=== PATIENT | female | born 1990 | race Caucasian/White ===

== ENCOUNTER → 2018-06-11 11:29 | Outpatient (CLI) | payer OTHER, MEDICAID ==
[2018-06-11 13:31] LABS: BASOPHILS 0.2 % (0-2); EOSINOPHILS 2.1 % (0-7); HEMATOCRIT 37.3 % (36.0-48.0); IMMATURE GRANULOCYTES 0.6 % (0-5); LYMPHOCYTES 20.7 % (15-50); MCH 30.3 pg (26.0-34.0); MCHC 34.9 g/dL (31.0-37.0); MCV 86.9 fL (80.0-100.0); MEAN PLATELET VOLUME 9.8 fL (7.4-10.4); MONOCYTES 6.5 % (2-11); NEUTROPHILS 69.9 % (40-80); PLATELET COUNT 198 10x3/uL (130-400); RBC 4.29 10x6/uL (4.00-5.40); RDW 12.9 % (11.5-14.5); WBC 4.7 10x3/uL (4.8-10.8)
[2018-06-11 13:46] LABS: ALBUMIN 2.6 g/dL (3.4-5.0); ALKALINE PHOSPHATASE 84 U/L (46-116); ALT (SGPT) 37 U/L (10-68); BILIRUBIN - TOTAL 0.25 mg/dL (0.2-1.3); CALC OSMOLALITY 275 mosm/kg (275-300); CARBON DIOXIDE 23.3 mmol/L (21.0-32.0); CHLORIDE - SERUM 107 mmol/L (98-107); CREATININE - SERUM 0.5 mg/dL (0.6-1.3); GLUCOSE 84 mg/dL (74-106); POTASSIUM - SERUM 3.9 mmol/L (3.5-5.1); PROTEIN - SERUM 6.5 g/dL (6.4-8.2); SODIUM 140 mmol/L (136-145); UREA NITROGEN 8 mg/dL (7-18); eGFR NON AFRICAN AMERICAN > 90 mL/min (90-120)
[2018-06-11 14:38] LABS: APPEARANCE HAZY (CLEAR); BILIRUBIN NEGATIVE (NEGATIVE); COLOR YELLOW (YELLOW); GLUCOSE NEGATIVE (NEGATIVE); KETONE NEGATIVE (NEGATIVE); NITRITE NEGATIVE (NEGATIVE); PROTEIN NEGATIVE (NEGATIVE)
== END | disposition home or self-care (01) ==
LOC: D.LDO 11:29 → EDBD 11:29
PROVIDERS: ATTEND Obstetrics & Gynecology
DX: O26.892 Other specified pregnancy related conditions, second trimester (principal); Z3A.18 18 weeks gestation of pregnancy; J11.1 Influenza due to unidentified influenza virus with other respiratory manifestations

== ENCOUNTER 2018-07-22 18:34 | Outpatient (CLI) | payer OTHER, MEDICAID ==
[2018-07-22 19:44] LABS: APPEARANCE CLEAR (CLEAR); BILIRUBIN NEGATIVE (NEGATIVE); COLOR STRAW (YELLOW); GLUCOSE NEGATIVE (NEGATIVE); KETONE NEGATIVE (NEGATIVE); NITRITE NEGATIVE (NEGATIVE); PROTEIN NEGATIVE (NEGATIVE); UROBILINOGEN NORMAL (NORMAL)
== END 2018-07-22 19:50 | disposition home or self-care (01) ==
LOC: D.LDO 18:34 → D.LABREF 18:34 → D.LDO 19:50
PROVIDERS: ATTEND Obstetrics & Gynecology
DX: O36.8130 Decreased fetal movements, third trimester, not applicable or unspecified (principal)

== ENCOUNTER → 2018-09-06 12:39 | Outpatient (CLI) | payer MEDICAID ==
[2018-09-06 13:12] LABS: APPEARANCE CLOUDY (CLEAR); COLOR YELLOW (YELLOW); SPECIFIC GRAVITY 1.005 (1.005-1.020)
[2018-09-06 13:13] LABS: BILIRUBIN NEGATIVE (NEGATIVE); GLUCOSE NEGATIVE (NEGATIVE); KETONE NEGATIVE (NEGATIVE); NITRITE NEGATIVE (NEGATIVE); PROTEIN NEGATIVE (NEGATIVE); UROBILINOGEN NORMAL (NORMAL)
[2018-11-07 19:29] VITALS: BMI 32.0
== END | disposition home or self-care (01) ==
LOC: D.LDO 12:39
PROVIDERS: ATTEND Obstetrics & Gynecology
DX: O26.893 Other specified pregnancy related conditions, third trimester (principal); Z3A.30 30 weeks gestation of pregnancy; M54.5 Low back pain

== ENCOUNTER → 2018-10-20 13:05 | Outpatient (CLI) | payer MEDICAID ==
[2018-11-07 19:29] VITALS: BMI 32.0
== END | disposition home or self-care (01) ==
LOC: D.LDO 13:05
PROVIDERS: ATTEND Obstetrics & Gynecology
DX: O47.9 False labor, unspecified (principal)

== ENCOUNTER 2018-11-07 19:03 | Inpatient (IN) | payer MEDICAID ==
[~2018-11-07] VITALS: Ht 167.6 cm; Wt 89.8 kg
[2018-11-07 19:29] VITALS: BP 122/65; Ht 167.6 cm; Wt 89.8 kg
[2018-11-07 21:06] LABS: HEMATOCRIT 30.3 % (36.0-48.0); HEMOGLOBIN 10.6 g/dL (12-16); MCH 30.7 pg (26.0-34.0); MCV 87.8 fL (80.0-100.0); MEAN PLATELET VOLUME 9.4 fL (7.4-10.4); RBC 3.45 10x6/uL (4.00-5.40); RDW 13.9 % (11.5-14.5); WBC 8.1 10x3/uL (4.8-10.8)
[2018-11-07 23:46] LABS: COLOR YELLOW (YELLOW)
[2018-11-07 23:47] LABS: APPEARANCE CLEAR (CLEAR); BILIRUBIN NEGATIVE (NEGATIVE); GLUCOSE NEGATIVE (NEGATIVE); KETONE NEGATIVE (NEGATIVE); NITRITE NEGATIVE (NEGATIVE); PROTEIN NEGATIVE (NEGATIVE); UROBILINOGEN NORMAL (NORMAL)
[2018-11-07 23:55] LABS: UDS - AMPHET NEGATIVE QUAL (NEGATIVE); UDS - BARB NEGATIVE QUAL (NEGATIVE); UDS - BENZO NEGATIVE QUAL (NEGATIVE); UDS - COCAINE NEGATIVE QUAL (NEGATIVE); UDS - OPIATE NEGATIVE QUAL (NEGATIVE); UDS - PCP NEGATIVE QUAL (NEGATIVE); UDS - THC NEGATIVE QUAL (NEGATIVE)
[2018-11-08 19:01] VITALS: BP 114/55
--- NOTE | 2018-11-08 22:30 | NUR ---
REPORT RECEIVED FROM ARCENIO.
--- NOTE | 2018-11-08 22:36 | NUR ---
PATIENT REPORT TO ROQUE BUENO TO ASSUME PATIENT CARE AT THIS TIME
--- NOTE | 2018-11-08 23:00 | NUR ---
PT IN BED, RESTING WITH EYES CLOSED. AWAKENS EASILY. NO DISTRESS NOTED. VSS. DENIES ANY NEEDS
[2018-11-09 00:01] VITALS: BP 97/60
--- NOTE | 2018-11-09 00:39 | NUR ---
PT C/O PAIN 5/10 TORADOL 10MG GIVEN PER ORDER. DENIES ANY OTHER NNEDS
--- NOTE | 2018-11-09 02:16 | NUR ---
PT UP IN ROOM TO BATHROOM. SCHEDULED TYLENOL 1000MG GIVE PER ORDER, SEE EMAR. STATED PAIN 08/06. DENIES ANY OTHER NEEDS AT THIS TIME
--- NOTE | 2018-11-09 03:15 | NUR ---
LAYING IN BED RESTING WITH EYES CLOSED. RESP WNL. CL IN REACH. SR UP X 2
[2018-11-09 04:34] VITALS: BP 110/62
--- NOTE | 2018-11-09 04:36 | NUR ---
PT AWAKE AND ALERT. BR INFANT, REQUESTS WATER. DENIES ANY OTHER NEEDS
--- NOTE | 2018-11-09 05:21 | NUR ---
AWAKE AND ALERT IN BED, DENIES ANY NEEDS
--- NOTE | 2018-11-09 07:40 | NUR ---
PT AT THIS TIME, INFORMED PT THAT I WILL BE BACK SHORTLY TO DO ASSESSMENT, PT VERBALIZES UNDERSTANDING, DENIES NEEDS AT THIS TIME
[2018-11-09 08:01] LABS: BASOPHILS 0.2 % (0-2); EOSINOPHILS 1.2 % (0-7); HEMATOCRIT 29.6 % (36.0-48.0); HEMOGLOBIN 10.3 g/dL (12-16); IMMATURE GRANULOCYTES 0.4 % (0-5); LYMPHOCYTES 14.7 % (15-50); MCH 30.2 pg (26.0-34.0); MCHC 34.8 g/dL (31.0-37.0); MCV 86.8 fL (80.0-100.0); MEAN PLATELET VOLUME 9.4 fL (7.4-10.4); MONOCYTES 8.2 % (2-11); NEUTROPHILS 75.3 % (40-80); PLATELET COUNT 225 10x3/uL (130-400); RBC 3.41 10x6/uL (4.00-5.40)
[2018-11-09 08:11] LABS: RAPID PLASMA REAGIN Non Reactive (Non Reactive)
[2018-11-09 08:19] VITALS: BP 115/60
--- NOTE | 2018-11-09 08:19 | NUR ---
ASSESSMENT PER FLOW SHEET, VS OBTAINED, SALINE LOCK IN LEFT WRIST INTACT WITH NO REDNESS OR EDEMA, FF, ML, U/2, PT REPORTS FLATUS, NO BM AND VOIDING WITH NO DIFFICULTY, PT REPORTS LITE BLEEDING WITH NO CLOTS, ADM TORADOL PER MD ORDERS FOR CRAMPING, PT DENIES FURTHER NEEDS AT THIS TIME
--- NOTE | 2018-11-09 08:24 | NUR ---
April Meza 11/09/18 Patient not available to speak with CLC regarding at this time. Patient in bathroom. Valentina Gunn, EDVIN
--- NOTE | 2018-11-09 09:15 | NUR ---
PT AT THIS TIME, REQUESTS TO TAKE A SHOWER WHEN FINISHED, INST PT TO USE CALL LIGHT WHEN READY
--- NOTE | 2018-11-09 09:50 | NUR ---
PT AMB IN BRAR WITH IN OPEN CRIB CART TAKING TO NSY, FAMILY AT SIDE, PT REPORTS SHE IS GOING TO WALK TO THE [employer] WITH FAMILY
--- NOTE | 2018-11-09 10:13 | NUR ---
PT BACK IN ROOM, PT C/O SALINE LOCK, SALINE LOCK REMOVED, TIP INTACT, PRESSURE HELD, BANDAID APPLIED, PT READY FOR SHOWER, TOWELS PROVIDED, PT TO SHOWER, BEDDING CHANGED, PT INST TO USE CALL LIGHT FOR ANY ASSISTANCE
--- NOTE | 2018-11-09 10:46 | NUR ---
PT CHICKEN VACCINATOR LIGHT, BANDAID OFF, NEW BANDAID PLACED OVER IV SITE, PT DENIES FURTHER NEEDS
--- NOTE | 2018-11-09 11:33 | NUR ---
PT , PT DENIES NEEDS OR PAIN AT THIS TIME, PT'S OTHER CHILD IN ROOM
--- NOTE | 2018-11-09 13:34 | NUR ---
PT HOLDING INFANT, DENIES NEEDS OR PAIN AT THIS TIME, PT'S OTHER CHILDREN IN ROOM
--- NOTE | 2018-11-09 14:37 | NUR ---
PT LAYING IN BED HOLDING , REQUESTED AND SERVED FRESH H20, DENIES FURTHER NEEDS OR PAIN AT THIS TIME, FAMILY AT BEDSIDE
--- NOTE | 2018-11-09 15:38 | NUR ---
PT AWAKE, HOLDING INFANT, DENIES NEEDS OR PAIN AT THIS TIME, FAMILY AT BEDSIDE
--- NOTE | 2018-11-09 16:08 | NUR ---
PT AWAKE, INFANT LAYING BESIDE PT IN BED, OTHER CHILDREN IN ROOM, ADM TYLENOL PER MD ORDERS, SEE EMAR, PT DENIES NEEDS
--- NOTE | 2018-11-09 16:45 | NUR ---
PT EATING DINNER, FOB HOLDING INFANT, OTHER CHILDREN IN ROOM, PT DENIES NEEDS OR PAIN AT THIS TIME
[2018-11-09 17:16] VITALS: BP 110/51
--- NOTE | 2018-11-09 17:16 | NUR ---
PT LAYING IN BED, INFANT BESIDE HER, PT TAKING PHOTOS, VS OBTAINED, DENIES NEEDS OR PAIN, FOB AND CHILDREN IN ROOM
--- NOTE | 2018-11-09 18:15 | NUR ---
PT HOLDING INFANT, DENIES NEEDS OR PAIN AT THIS TIME, FAMILY IN ROOM
[2018-11-09 19:24] VITALS: BP 113/67
--- NOTE | 2018-11-09 22:54 | NUR ---
PT LYING IN BED HOLDING INFANT, DENIES NEEDS AT THIS TIME. SCHEDULED TYLENOL ADMINISTERED PER MD ORDERS. NO FURTHER NEEDS IDENTIFIED. WILL CONTINUE TO MONITOR.
--- NOTE | 2018-11-09 23:42 | NUR ---
PT , ATILIO CRACKERS AND PEANUT BUTTER PROVIDED PER REQUEST. DENIES PAIN OR OTHER NEEDS. WILL CONTINUE TO MONITOR
--- NOTE | 2018-11-10 02:45 | NUR ---
PT SLEEPING WITH EASY RESPIRATIONS. NO DISTRESS NOTED. AT BEDSIDE IN OPEN CRIB. WILL CONTINUE TO MONITOR
--- NOTE | 2018-11-10 04:59 | NUR ---
PT RESTING QUIETLY WITH EYES CLOSED, NO DISTRESS NOTED. EASILY AROUSED TO VERBAL STIMULI. TYLENOL 1000MG PO ADMINISTERED PER MD ORDERS. SEE EMAR
--- NOTE | 2018-11-10 07:30 | NUR ---
PT SITTING UP IN BED. CARING FOR INFANT. DENIES C/O OR NEEDS.
--- NOTE | 2018-11-10 08:37 | NUR ---
April Meza 11/10/18 LE@ 8:00 S: Client states her nipples are sore when she latches infant. She was given a nipple shield to use last night but they still hurt. States she has been feeding every 2 hours. Last night infant nursed 30 minutes on one side. States she thinks it's infant latch because she hasn't been opening her mouth wide to nurse. Patient observes feeding cues also and agrees to get help with latch. States she still feels some pain with infant latch but it feels better. Verbalized she understands what a correctly latch looks like and is aware to make sure mouth is open wider when latching. Patient states she is tired and will try and get some rest. Denies any other questions or concerns. Patient states she does get WIC. O: Patient standing up in room infant in nursery. Informed patient takes time, practice, and patience in the beginning. Explained normal feeding patterns for a breastfed , benefits of skin to skin, infant feeding cues, positions, how to verify is latched correctly, and encouraged to practice responsive feeding. It is normal for to want to nurse often and how long infant remains latch to vary per feeding. Infant was brought back to room by nursery staff. Observed infant feeding cues and offered to help latch infant in laid back position. Both of patients breast are red, no scabbing or bleeding. My observations from how patient nipples look, infant is being held in cradle position and is only sucking on the tip of patients nipples. If infant is being latched on the left breast, is sucking at an angle only on the tip of the nipple. This can make patient nipple look flat on the tip of one side. Vice Versa on the other breast. Patient applied nipple shield but the shield is to small for her nipples. This can cause more pain due to incorrect size. Discourage use of nipple shield. Lets focus on fixing infant latch. It will take some time for your nipples to heal completely and you not to feel pain. Since they are sore now, even when latches, that feeling can remain but will get better with being latched correctly. The roa to fixing sore nipples is fixing infant latch. Patient has lanolin cream on stand next to bed, explained how to use and benefits. Explained how to care for nipples when taking shower. Patient position in laid back position to nurse. latched on the right breast at 8:15. Infant had round cheeks, mouth 140 degrees, sucking in a rocking motion, and appears content with feeding. Infant sucked for 10 minutes, came off the breast, and is sleeping. Patient nipples look round, not flat. was removed from the breast, burped, swaddled, and placed in crib at beside. Patient verbally agrees to verify infant latch for every feeding and to ask for help as needed with . [facility] appointment made for client when in her room. A: Patient in need of help with latching due to sore nipples. P: Patient will ask for help as needed from nursery staff with help with , latching . Valentina Gunn, CLC
[2018-11-10 08:41] VITALS: BP 108/58
--- NOTE | 2018-11-10 08:41 | NUR ---
ASSESSMENT COMPLETED. VSS. HRRR WITHOUT AUDIBLE MURMUR. BBS CLEAR. BS X 4. ABDOMEN SOFT/NON-DISTENDED. FUNDUS FIRM AT U/2. RUBRA LOCHIA SMALL AMT. PT DENIES HEAVY BLEEDING OR PASSING CLOTS. PERINEUM WITHOUT EDEMA. NEG HOMANS' SIGN. PPP. NO EDEMA NOTED TO BLE. PT DENIES PAIN. REQUESTS AND RECEIVES COFFEE.
--- NOTE | 2018-11-10 09:45 | NUR ---
DISCHARGE INSTRUCTIONS GIVEN TO PT. PT VERBALIZES UNDERSTANDING OF ALL INSTRUCTIONS. COPIES GIVEN TO PT. PT AWAITS 'S DISCHARGE.
--- NOTE | 2018-11-10 11:00 | NUR ---
PT SITTING UP IN BED. VISITS WITH FAMILY. DENIES NEEDS OR C/O.
--- NOTE | 2018-11-10 12:45 | NUR ---
PT SITTING UP IN BED. CARING FOR INFANT. DENIES C/O OR NEEDS.
--- NOTE | 2018-11-10 14:01 | NUR ---
PT SITTING UP IN BED. HOLDS . DENIES NEEDS. AWAITING 'S DISCHARGE.
--- NOTE | 2018-11-10 14:47 | NUR ---
PT AMBULATORY IN HALLS AT THIS TIME. DENIES C/O OR NEEDS.
--- NOTE | 2018-11-10 15:00 | NUR ---
PT READY FOR DISCHARGE. DISCHARGED IN STABLE CONDITION VIA AMBULATORY PER PT REQUEST. FOB CARRYING INFANT. PT DISCHARGED AMBULATORY OFF UNIT WITH FAMILY.
== END 2018-11-10 15:00 | disposition home or self-care (01) | DRG 807 ==
LOC: D.LD 19:03
PROVIDERS: ADMIT Obstetrics & Gynecology; ATTEND Obstetrics & Gynecology
PROC: 10E0XZZ Delivery of Products of Conception, External Approach (ICD-10-PCS; principal; 2018-11-09)
PROC: 0HQ9XZZ Repair Perineum Skin, External Approach (ICD-10-PCS; 2018-11-09)
PROC: 3E033VJ Introduction of Other Hormone into Peripheral Vein, Percutaneous Approach (ICD-10-PCS; 2018-11-09)
DX: O99.824 Streptococcus B carrier state complicating childbirth (principal); Z37.0 Single live birth; Z3A.39 39 weeks gestation of pregnancy; O70.0 First degree perineal laceration during delivery; Z87.891 Personal history of nicotine dependence